=== PATIENT | male | born 1970 | race Two or more races ===

== ENCOUNTER 2017-09-27 11:19 | Emergency (ER) | payer OTHER ==
[~2017-09-27] VITALS: Ht 175.3 cm; Wt 165.6 kg
[2017-09-27] MEDS ORDERED: DIOVAN HCT 3201 EACH (11:30)
[2017-09-27] MEDS ORDERED: TOPROL XL50 M1 (11:31)
== END 2017-09-27 14:36 | disposition home or self-care (01) ==
LOC: ER 11:19
DX: B34.9 Viral infection, unspecified (principal); R51 Headache

== ENCOUNTER 2018-09-28 10:33 | Outpatient (CLI) | payer OTHER ==
[~2018-09-28 10:33] MED LIST: DIOVAN HCT 3201 EACH; TOPROL XL50 M1
== END 2018-09-28 10:36 | disposition home or self-care (01) ==
LOC: TOM 10:33
DX: R22.1 Localized swelling, mass and lump, neck (principal)

== ENCOUNTER 2024-12-10 22:12 | Inpatient (IN) | payer OTHER ==
[~2024-12-10] VITALS: Ht 167.6 cm; Wt 230.0 kg
--- NOTE | 2024-12-10 22:30 | NUR ---
PACIENTE ALERTA Y ORIENTADO X3 EL MISMO PACIENTE DEL DR. ROSADO BENEDISTO EL CULA REFIERE QUE A TENIDO FIEBRE ,NAUSIAS Y DOLOR ABDOMINAL. S/V ESTABLE DENTRO DE CAIN CONDICION. PACIENTE EN SHAHID CON BARANDAS ELEVADAS EN ESPERA DE EVALUACION MEDICA.
[2024-12-10] MEDS ORDERED: FAMOTIDINE/PF 20 MG in 0.9 % SODIUM CHLORIDE 8 ML IV PUSH SCH (23:19)
[2024-12-10] MEDS ORDERED: CIPROFLOXACIN IN 5 % DEXTROSE 200 ML IV ONE (23:30)
[2024-12-10] MEDS ORDERED: ONDANSETRON HCL 4 MG in 0.9 % SODIUM CHLORIDE 50 ML IV PRN (23:30)
[2024-12-10] MEDS ORDERED: ONDANSETRON HCL 4 MG in 0.9 % SODIUM CHLORIDE 50 ML IV ONE (23:30)
[2024-12-10] MEDS ORDERED: ACETAMINOPHEN 500 MG GEL..CAP PO PRN (23:30)
[2024-12-10] MEDS ORDERED: 0.9 % SODIUM CHLORIDE 1,000 ML IV SCH (23:30)
[2024-12-10] MEDS ORDERED: DEXTROSE 50 % IN WATER 0.5 G/ML DISP.SYRIN IV PRN (23:30)
[2024-12-10] MEDS ORDERED: INSULIN LISPRO 1,000 UNIT/10 ML UNITS SUBCUTANEO PRN (23:30)
[2024-12-10] MEDS ORDERED: MORPHINE SULFATE 4 MG/ML CARTRIDGE IV ONE (23:30)
[2024-12-10] MEDS ORDERED: ONDANSETRON HCL 2 MG/ML VIAL ONE (23:42)
[2024-12-10] MEDS ORDERED: FAMOTIDINE/PF 20 MG/2 ML VIAL ONE (23:43)
[2024-12-11] MEDS ORDERED: ACETAMINOPHEN 500 MG GEL..CAP PO ONE (00:59)
[2024-12-11 01:05] LABS: URINE APPEARANCE Clear; URINE BILIRRUBIN Small (NEGATIVE); URINE BLOOD Negative; URINE COLOR Dark Yellow; URINE GLUCOSE Negative (NEGATIVE); URINE KETONE 15 (NEGATIVE); URINE LEUKOCYTE Negative; URINE NITRATE Negative; URINE UROBILINOGEN 2.0 E.U./dl
[2024-12-11 01:08] LABS: URINE BACTERIA 14.3 uL (0.0-1933); URINE CAST 9.53 uL (0.0-1.40); URINE EPITHELIAL CELLS 44.9 uL (0.0-38.8); URINE RBC 27.4 uL (0.0-20.8); URINE WBC 8.4 uL (0.0-23.2)
[2024-12-11 01:21] LABS: BASO % 0.2 % (0.1-1.2); EOS # 0.03 (0.04-0.54); EOS % 0.2 % (0.7-7.0); LYMPH # 1.79 (1.18-3.74); LYMPH % 11.2 % (19.3-53.1); MEAN PLATELET VOLUME 9.70 fl (9.4-12.4); MONO # 1.42 (0.24-0.82); MONO % 8.9 % (4.7-12.5); NEUT # 12.53 (1.56-6.13); NEUT % 78.7 % (34.0-71.1); RED CELL DISTRIBUTION WIDTH 14.6 % (11.6-14.4)
[2024-12-11 01:28] LABS: ERYTHROCYTE SEDIMENTATION RATE > 130 mm/hr (0-20)
[2024-12-11 01:32] LABS: INR 1.2
[2024-12-11 01:43] LABS: URINE MUCUS MODERATE; URINE PROTEIN 100 (NEGATIVE)
[2024-12-11 01:50] VITALS: BP 108/69
[2024-12-11 02:26] LABS: ALT/SGPT 28.0 U/L (12-78); AST/SGOT 26.0 U/L (15-37); BILIRUBIN TOTAL 0.83 mg/dL (0.3-1.2); BUN CREA RATIO 14.0 (7.0-25.0); CREATININE SERUM 0.83 mg/dL (0.70-1.30); GFR 96.55; GLOBULINA 5.3 G/DL (2.4-3.5); GLUCOSE FASTING 103.0 mg/dL (65-100); OSMOLALITY SERUM 276.0 MOSM/KG (275-295)
[2024-12-11] MEDS ORDERED: POTASSIUM CHLORIDE 20MEQ/100ML H2O PB IV ONE (03:00)
[2024-12-11 03:49] VITALS: BP 173/72; O2SAT 95
[2024-12-11 08:47] VITALS: BP 107/69; O2SAT 96
[2024-12-11] MEDS ORDERED: AMLODIPINE BESYLATE 5 MG TABLET PO SCH (09:00)
[2024-12-11] MEDS ORDERED: CLONAZEPAM 1 MG TABLET PO SCH (09:00)
[2024-12-11] MEDS ORDERED: SODIUM CHLORIDE 0.45 % 1,000 ML IV SCH (09:00)
[2024-12-11] MEDS ORDERED: METOPROLOL SUCCINATE 50 MG TAB.SR.24H PO SCH (09:00)
[2024-12-11] MEDS ORDERED: ROSUVASTATIN CALCIUM 10 MG TABLET PO SCH (09:00)
[2024-12-11] MEDS ORDERED: POTASSIUM CHLORIDE IN WATER 40 MEQ/100 ML PIGGYBAG IV NR (10:00)
[2024-12-11] MEDS ORDERED: MEROPENEM 500 MG/VIAL VIAL IV NR (10:30)
[2024-12-11 17:40] VITALS: BP 160/65; O2SAT 96
[2024-12-11] MEDS ORDERED: MEROPENEM 500 MG/VIAL VIAL IV SCH (18:00)
[2024-12-12 02:15] VITALS: BP 148/54; O2SAT 99
[2024-12-12 08:21] VITALS: BP 134/69; O2SAT 96
[2024-12-12] MEDS ORDERED: PANTOPRAZOLE SODIUM 40 MG/VIAL VIAL IV PUSH NR (12:00)
[2024-12-12 12:11] LABS: BASO % 0.2 % (0.1-1.2); EOS # 0.02 (0.04-0.54); EOS % 0.1 % (0.7-7.0); LYMPH # 0.92 (1.18-3.74); LYMPH % 6.6 % (19.3-53.1); MEAN PLATELET VOLUME 9.70 fl (9.4-12.4); MONO # 0.69 (0.24-0.82); MONO % 4.9 % (4.7-12.5); NEUT # 12.24 (1.56-6.13); NEUT % 87.5 % (34.0-71.1); RED CELL DISTRIBUTION WIDTH 14.6 % (11.6-14.4)
[2024-12-12 12:48] LABS: ALT/SGPT 136.0 U/L (12-78); AST/SGOT 227.0 U/L (15-37); BILIRUBIN TOTAL 3.38 mg/dL (0.3-1.2); BUN CREA RATIO 12.0 (7.0-25.0); CREATININE SERUM 0.77 mg/dL (0.70-1.30); GFR 105.28; GLOBULINA 3.8 G/DL (2.4-3.5); GLUCOSE FASTING 94.0 mg/dL (65-100); OSMOLALITY SERUM 265.0 MOSM/KG (275-295)
[2024-12-12 17:02] LABS: ALT/SGPT 135.0 U/L (12-78); AST/SGOT 211.0 U/L (15-37); BILIRUBIN TOTAL 3.46 mg/dL (0.3-1.2); BUN CREA RATIO 16.0 (7.0-25.0); CREATININE SERUM 0.62 mg/dL (0.70-1.30); GFR 135.19; GLOBULINA 3.7 G/DL (2.4-3.5); GLUCOSE FASTING 86.0 mg/dL (65-100); OSMOLALITY SERUM 268.0 MOSM/KG (275-295)
[2024-12-12 17:19] VITALS: BP 150/80; O2SAT 98
[2024-12-12] MEDS ORDERED: POTASSIUM CHLORIDE/D5-0.9%NACL 20 MEQ/1,000 ML PIGGYBAG IV SCH (20:45)
[2024-12-12] MEDS ORDERED: MULTIVIT INFUSN,ADULT 4,VIT K 10 ML VIAL IV SCH (20:45)
[2024-12-12] MEDS ORDERED: PANTOPRAZOLE SODIUM 40 MG/VIAL VIAL IV PUSH SCH (21:00)
[2024-12-12] MEDS ORDERED: fentaNYL CITRATE 50 MCG/ML AMPUL IV PUSH ONE (22:00)
[2024-12-12] MEDS ORDERED: MIDAZOLAM HCL 2 MG/2 ML VIAL IV PUSH ONE (22:00)
[2024-12-13 00:55] VITALS: BP 129/68; O2SAT 99
[2024-12-13 08:20] VITALS: BP 136/74; O2SAT 98
[2024-12-13] MEDS ORDERED: MULTIVIT INFUSN,ADULT 4,VIT K 10 ML VIAL IV SCH (09:00)
[2024-12-13 15:00] LABS: ALT/SGPT 109.0 U/L (12-78); AST/SGOT 75.0 U/L (15-37); BILIRUBIN TOTAL 0.95 mg/dL (0.3-1.2); BILIRUBIN,CONJUGATED 0.65 mg/dL (0.0-0.2)
[2024-12-13 17:39] VITALS: BP 135/80; O2SAT 97
[2024-12-13] MEDS ORDERED: DEXTROSE 5 % AND 0.9 % NACL 1,000 ML IV SCH (20:15)
[2024-12-14 02:13] VITALS: BP 144/86; O2SAT 99
[2024-12-14 07:59] LABS: BASO % 0.6 % (0.1-1.2); EOS # 0.14 (0.04-0.54); EOS % 2.0 % (0.7-7.0); LYMPH # 1.53 (1.18-3.74); LYMPH % 21.9 % (19.3-53.1); MEAN PLATELET VOLUME 9.80 fl (9.4-12.4); MONO # 0.53 (0.24-0.82); MONO % 7.6 % (4.7-12.5); NEUT # 4.68 (1.56-6.13); NEUT % 66.9 % (34.0-71.1); RED CELL DISTRIBUTION WIDTH 14.4 % (11.6-14.4)
[2024-12-14 08:20] LABS: BUN CREA RATIO 28.0 (7.0-25.0); CREATININE SERUM 0.57 mg/dL (0.70-1.30); GFR 148.96; GLUCOSE FASTING 96.0 mg/dL (65-100); OSMOLALITY SERUM 286.0 MOSM/KG (275-295)
[2024-12-14 08:27] VITALS: BP 150/69; O2SAT 99
[2024-12-14 17:42] VITALS: BP 150/95; O2SAT 96
[2024-12-15 02:41] VITALS: BP 144/82; O2SAT 100
[2024-12-15 09:00] VITALS: BP 159/84
[2024-12-15 18:14] VITALS: BP 166/80; O2SAT 97
[2024-12-16 02:57] VITALS: BP 132/84; O2SAT 99
[2024-12-16 08:33] VITALS: BP 134/76
[2024-12-16 13:06] LABS: BASO % 0.4 % (0.1-1.2); EOS # 0.12 (0.04-0.54); EOS % 1.8 % (0.7-7.0); LYMPH # 1.72 (1.18-3.74); LYMPH % 25.6 % (19.3-53.1); MEAN PLATELET VOLUME 8.80 fl (9.4-12.4); MONO # 0.32 (0.24-0.82); MONO % 4.8 % (4.7-12.5); NEUT # 4.49 (1.56-6.13); NEUT % 66.7 % (34.0-71.1); RED CELL DISTRIBUTION WIDTH 14.0 % (11.6-14.4)
[2024-12-16 13:13] LABS: ERYTHROCYTE SEDIMENTATION RATE > 130 mm/hr (0-20)
[2024-12-16 13:21] LABS: INR 1.15
[2024-12-16 13:25] LABS: ALT/SGPT 47.0 U/L (12-78); AST/SGOT 21.0 U/L (15-37); BILIRUBIN TOTAL 0.57 mg/dL (0.3-1.2); BUN CREA RATIO 14.0 (7.0-25.0); CREATININE SERUM 0.59 mg/dL (0.70-1.30); GFR 143.15; GLOBULINA 4.5 G/DL (2.4-3.5); GLUCOSE FASTING 89.0 mg/dL (65-100); OSMOLALITY SERUM 279.0 MOSM/KG (275-295)
[2024-12-16 17:32] VITALS: BP 124/83; BP 130/90; O2SAT 97
[2024-12-17 02:06] VITALS: BP 130/77; O2SAT 99
[2024-12-17 08:56] VITALS: BP 152/84; O2SAT 100
[2024-12-17 19:04] VITALS: BP 157/85; O2SAT 100
[2024-12-17] MEDS ORDERED: SODIUM CHLORIDE 0.45 % 1,000 ML IV SCH (23:00)
[2024-12-18 01:04] VITALS: BP 146/83; O2SAT 99
[2024-12-18 08:05] VITALS: BP 143/73
[2024-12-18 17:13] VITALS: BP 131/79
[2024-12-19 02:11] VITALS: BP 144/76; O2SAT 100
[2024-12-19 08:40] VITALS: BP 146/87
== END 2024-12-19 09:52 | disposition home or self-care (01) | DRG 444 ==
LOC: ER 22:12 → MEDJ 23:55
PROVIDERS: General Practice; Internal Medicine; Internal Medicine Infectious Disease; ADMIT Internal Medicine; ATTEND Internal Medicine
PROC: BW21ZZZ Computerized Tomography (CT Scan) of Abdomen and Pelvis (ICD-10-PCS; 2024-12-11)
PROC: BT4JZZZ Ultrasonography of Kidneys and Bladder (ICD-10-PCS; 2024-12-11)
PROC: 0F9430Z Drainage of Gallbladder with Drainage Device, Percutaneous Approach (ICD-10-PCS; principal; 2024-12-12)
PROC: 02HV33Z Insertion of Infusion Device into Superior Vena Cava, Percutaneous Approach (ICD-10-PCS; 2024-12-16)
PROC: B548ZZA Ultrasonography of Superior Vena Cava, Guidance (ICD-10-PCS; 2024-12-16)
DX: K81.0 Acute cholecystitis (principal); A41.9 Sepsis, unspecified organism; K90.49 Malabsorption due to intolerance, not elsewhere classified; R73.9 Hyperglycemia, unspecified; R73.03 Prediabetes; G47.33 Obstructive sleep apnea (adult) (pediatric); E66.01 Morbid (severe) obesity due to excess calories; F17.210 Nicotine dependence, cigarettes, uncomplicated; I10 Essential (primary) hypertension; E78.5 Hyperlipidemia, unspecified; Z79.84 Long term (current) use of oral hypoglycemic drugs; Z88.0 Allergy status to penicillin; Z91.013 Allergy to seafood; B96.20 Unspecified Escherichia coli [E. coli] as the cause of diseases classified elsewhere

== ENCOUNTER 2025-01-03 06:36 | Outpatient (CLI) | payer OTHER ==
[2025-01-03 07:57] LABS: BASO % 0.5 % (0.1-1.2); EOS # 0.21 (0.04-0.54); EOS % 2.8 % (0.7-7.0); LYMPH # 2.14 (1.18-3.74); LYMPH % 29.0 % (19.3-53.1); MEAN PLATELET VOLUME 9.70 fl (9.4-12.4); MONO # 0.49 (0.24-0.82); MONO % 6.6 % (4.7-12.5); NEUT # 4.48 (1.56-6.13); NEUT % 61.0 % (34.0-71.1); RED CELL DISTRIBUTION WIDTH 13.8 % (11.6-14.4)
[2025-01-03 08:01] LABS: ERYTHROCYTE SEDIMENTATION RATE 54 mm/hr (0-20)
[2025-01-03 09:08] LABS: ALT/SGPT 36.0 U/L (12-78); AST/SGOT 19.0 U/L (15-37); BILIRUBIN TOTAL 0.53 mg/dL (0.3-1.2); BILIRUBIN,CONJUGATED 0.25 mg/dL (0.0-0.2); BUN CREA RATIO 30.0 (7.0-25.0); CREATININE SERUM 0.84 mg/dL (0.70-1.30); GFR 95.22; GLOBULINA 3.9 G/DL (2.4-3.5); GLUCOSE FASTING 86.0 mg/dL (65-100); OSMOLALITY SERUM 287.0 MOSM/KG (275-295)
== END 2025-01-03 06:40 | disposition home or self-care (01) ==
LOC: LAB 06:36
PROVIDERS: ATTEND Internal Medicine
DX: I50.82 Biventricular heart failure (principal); I10 Essential (primary) hypertension; E78.9 Disorder of lipoprotein metabolism, unspecified; E11.8 Type 2 diabetes mellitus with unspecified complications; I51.3 Intracardiac thrombosis, not elsewhere classified; K75.9 Inflammatory liver disease, unspecified; K76.9 Liver disease, unspecified; K75.81 Nonalcoholic steatohepatitis (NASH)

== ENCOUNTER 2025-01-03 08:05 | Outpatient (CLI) | payer OTHER | END 2025-01-03 08:08 | disposition home or self-care (01) | LOC: TOM 08:05 | PROVIDERS: ATTEND Internal Medicine | DX: R10.817 Generalized abdominal tenderness (principal); K43.7 Other and unspecified ventral hernia with gangrene; P38.9 Omphalitis without hemorrhage; R30.1 Vesical tenesmus ==

== ENCOUNTER 2025-03-20 08:04 | Outpatient (CLI) | payer OTHER | END 2025-03-20 08:07 | disposition home or self-care (01) | LOC: TOM 08:04 | PROVIDERS: ATTEND Internal Medicine | DX: K81.1 Chronic cholecystitis (principal) ==